=== PATIENT | female | born 1955 | race Caucasian/White ===

== ENCOUNTER 2017-04-20 07:13 | Day surgery (SDC) | payer OTHER ==
[~2017-04-20] VITALS: Ht 170.2 cm; Wt 94.2 kg
[2017-04-20 08:06] VITALS: Ht 170.2 cm; Wt 94.2 kg
[2017-04-20] MEDS ORDERED: LEVOTHYROXINE (08:25)
[2017-04-20] MEDS ORDERED: ATORVASTATIN (08:25)
[2017-04-20] MEDS ORDERED: METFORMIN (08:25)
[2017-04-20] MEDS ORDERED: MIDAZOLAM 1 MG/ML 2 ML INJ ONE (08:54)
[2017-04-20] MEDS ORDERED: FENTAnyl 50 MCG/ML VIAL ONE (08:54)
[2017-04-20] MEDS ORDERED: PROPOFOL 20 ML ONE (08:54)
--- NOTE | 2017-04-20 09:41 | OPPN ---
Date/Time of Note Date/Time of Note DATE: 04/20/17 TIME: 09:38 Operative Report Preoperative Diagnosis Positive occult blood in stool Postoperative Diagnosis 2 sigmoid polyps were removed using a biopsy forceps as well as snare and electrocautery Prominent ileocecal valve was biopsied Operation/Procedure Performed Colonoscopy biopsy and polypectomy Surgeon see signature line teaching assistant None Anesthesia: MAC Estimated blood loss: none Transfusion Required none Specimen Colon polyps Biopsy of prominent ileocecal valve Grafts/Implants none Complications none TAMI HOWE MD Apr 20, 2017 09:41
--- NOTE | 2017-04-20 09:41 | OPPN ---
Date/Time of Note Date/Time of Note DATE: 04/20/17 TIME: 09:38 Operative Report Preoperative Diagnosis Positive occult blood in stool Postoperative Diagnosis 2 sigmoid polyps were removed using a biopsy forceps as well as snare and electrocautery Prominent ileocecal valve was biopsied Operation/Procedure Performed Colonoscopy biopsy and polypectomy Surgeon see signature line marketing assistant manager None Anesthesia: MAC Estimated blood loss: none Transfusion Required none Specimen Colon polyps Biopsy of prominent ileocecal valve Grafts/Implants none Complications none TAMI HOWE MD Apr 20, 2017 09:41
--- NOTE | 2017-04-20 09:41 | OPPN ---
Date/Time of Note Date/Time of Note DATE: 04/20/17 TIME: 09:38 Operative Report Preoperative Diagnosis Positive occult blood in stool Postoperative Diagnosis 2 sigmoid polyps were removed using a biopsy forceps as well as snare and electrocautery Prominent ileocecal valve was biopsied Operation/Procedure Performed Colonoscopy biopsy and polypectomy Surgeon see signature line library assistant None Anesthesia: MAC Estimated blood loss: none Transfusion Required none Specimen Colon polyps Biopsy of prominent ileocecal valve Grafts/Implants none Complications none TAMI HOWE MD Apr 20, 2017 09:41
[2017-04-20 10:00] VITALS: BP 136/79; PULSE 78; RESP 20
--- NOTE | 2017-04-20 10:15 | GILP ---
DATE OF PROCEDURE: NAME OF PROCEDURES: Colonoscopy, biopsy and polypectomy. SURGEON: Tami Lan MD PREOPERATIVE DIAGNOSIS: Positive occult blood in stool. POSTOPERATIVE DIAGNOSES: 1. Colonoscopy all the way to the cecum. 2. Two sigmoid colon polyps were removed using the biopsy forceps as well as snare and electrocaute ry. 3. Prominent ileocecal valve was biopsied. 4. Angiodysplastic lesion in the sigmoid colon. 5. Internal hemorrhoids. INDICATION FOR THE PROCEDURE: Ms. Marlene Robbins is a 62-year-old female patient who was noted to [place] ve positive occult blood in stool. She was scheduled for colonoscopy. The procedure and possible complications were well explained to the patient, she understood and cons ented to the procedure. DESCRIPTION OF PROCEDURE: Under the influence of anesthesia, the colonoscope was carefully introduc ed in the rectum and under direct vision, it was advanced all the way to the cecum. FINDINGS: Patient had 2 sigmoid colon polyps and they were removed using the biopsy forceps as well as snare and electrocautery. She was noted to have a prominent ileocecal valve and biopsies were t aken for histopathology. She had angiodysplastic lesions in the sigmoid colon and internal hemorrho ids. She tolerated the procedure very well and there was no complication from the procedure. At the end of the procedures, she was awake with stable vital signs and she was discharged home to the care of her family. IMPRESSION: Please see postoperative diagnoses. PLAN: 1. Await histopathology report. 2. The timing for the next colonoscopy will be decided after reviewing the biopsy reports. Dictated By: TAMI MARTINEZ/CHERYL Conf#: [id number] DID#: [id number]
== END 2017-04-20 10:59 | disposition home or self-care (01) ==
LOC: GIL 07:13
PROVIDERS: ATTEND Internal Medicine Gastroenterology
DX: D12.5 Benign neoplasm of sigmoid colon (principal); K64.8 Other hemorrhoids; E03.9 Hypothyroidism, unspecified; E11.9 Type 2 diabetes mellitus without complications
CPT/HCPCS: 45380; 82962; 88305; J2250; J3010; Z7610